=== PATIENT | male | born 1940 | race Caucasian/White ===

== ENCOUNTER 2019-07-20 15:44 | Outpatient (CLI) | payer MEDICARE, SELFPAY ==
[2019-07-20 16:02] LABS: Basophils % 0.2 %; Eosinophils # 0.1 10^3/uL (0.0-0.8); Eosinophils % 1.2 %; Hematocrit 44.1 % (42.0-52.0); Hemoglobin 13.5 g/dL (11.7-16.6); Lymphocytes # 1.5 10^3/uL (0.8-4.8); Lymphocytes % 18.6 %; Mean Corpuscular HGB Conc 30.6 g/dL (30.0-36.0); Mean Corpuscular Hemoglobin 26.4 pg (28.0-34.0); Mean Corpuscular Volume 86.1 fL (80-94); Mean Platelet Volume 10.5 fL (7.4-10.4); Monocytes # 0.8 10^3/uL (0.2-0.9); Monocytes % 9.5 %; Neutrophils # 5.7 10^3/uL (1.8-7.7); Neutrophils % 69.7 %; Nucleated Red Blood Cells % 0 %; Platelet Count 215 10^3/cmm (130-400); Red Blood Count 5.12 10^6/uL (4.1-5.3); Red Cell Distribution Width 14.3 % (12.1-15.1); White Blood Count 8.2 10^3/uL (4.0-10.0)
[2019-07-20 17:48] LABS: Alanine Aminotransferase 34 U/L (0-41); Albumin Level 3.9 g/dL (3.5-5.2); Alkaline Phosphatase 120 IU/L (40-130); Anion Gap 17.9 (5-19); Blood Urea Nitrogen 31 mg/dL (8-23); Calcium 9.4 mg/dL (8.5-10.5); Carbon Dioxide 32 mmol/L (22-29); Chloride 92 mmol/L (98-107); Glucose 137 mg/dL (65-115); NT Pro B Type Natriuretic Pept 2306 pg/mL (0-450); Osmolality Calculated 285 mOsm/kg (285-295); Potassium 3.9 mmol/L (3.5-5.1); Sodium 138 mmol/L (136-145); Total Bilirubin 0.7 mg/dL (0.15-1.2); Total Protein 6.9 g/dL (6.6-8.7)
[2019-07-20 18:13] LABS: Aspartate Amino Transferase 37 U/L (0-40)
== END 2019-07-20 15:45 | disposition home or self-care (01) ==
LOC: LAB 15:50
PROVIDERS: Visit Provider Internal Medicine
DX: I50.9 Heart failure, unspecified (principal); J44.9 Chronic obstructive pulmonary disease, unspecified; I48.91 Unspecified atrial fibrillation
CPT/HCPCS: 80053; 83880; 85025

== ENCOUNTER 2019-07-21 15:23 | Outpatient (CLI) | payer MEDICARE, SELFPAY ==
[2019-07-21 15:42] LABS: INR 2.22 (0.8-1.2)
== END 2019-07-21 15:24 | disposition home or self-care (01) ==
LOC: LAB 15:26
PROVIDERS: Visit Provider Internal Medicine
DX: Z79.01 Long term (current) use of anticoagulants (principal)
CPT/HCPCS: 85610